=== PATIENT | male | born 1950 | race Caucasian/White ===

== ENCOUNTER 2023-10-24 06:28 | Observation (INO) | payer MEDICARE, OTHER ==
[2023-10-24 07:06] LABS: #Basophils 0.03 10x3/uL (0.0-0.2); %Basophils 0.3 % (0.0-1.0); %Eosinophils 0.8 % (0.0-10.0); %Lymphocytes 18.5 % (21.0-51.0); %Monocytes 6.7 % (0.0-10.0); %Neutrophils 73.4 % (42.0-75.0); Hematocrit 47.2 % (42.0-52.0); Hemoglobin 16.6 g/dL (14.0-18.0); Mean Corpuscular HGB CONC 35.2 g/dL (32.0-36.0); Mean Corpuscular Volume 88.2 fL (78.0-98.0); Mean Platelet Volume 9.5 fL (7.4-10.4); Platelet Count 218 10x3/uL (130-400); RBC Distribution Width 12.2 % (11.5-14.5); Red Blood Cell (RBC) Count 5.35 mill/uL (4.70-6.10)
[2023-10-24] MEDS ORDERED: Nitroglycerin 2% Ointment 1 INCH/1 GM Packet ONE (07:12)
[2023-10-24 07:24] LABS: ALT (SGPT) 19 U/L (8-55); AST (SGOT) 19 U/L (5-34); Alkaline Phosphatase 58 U/L (40-110); Anion Gap 15 mmol/L (10-20); BUN (Urea Nitrogen) 17 mg/dL (8.4-25.7); Bilirubin, Total 0.6 mg/dL (0.2-1.2); Calc. Creatinine Clearance 0 mL/min (70-130); Calcium 9.4 mg/dL (7.8-10.44); Carbon Dioxide 21 mmol/L (23-31); Chloride 107 mmol/L (98-107); Estimated GFR 78; Globulin 3.4 g/dL (2.4-3.5); Glucose 168 mg/dL (83-110); Lipase 30 U/L (8-78); Potassium 3.9 mmol/L (3.5-5.1); Protein, Total 7.4 g/dL (5.8-8.1); Sodium 139 mmol/L (136-145)
[2023-10-24 07:28] LABS: Troponin I Less than 0.010 ng/mL (< 0.028)
[2023-10-24] MEDS ORDERED: Ondansetron PF 4 MG/2 ML Vial ONE (08:39)
[2023-10-24] MEDS ORDERED: Acetaminophen 325 MG TAB PO PRN (08:49)
[2023-10-24] MEDS ORDERED: Acetaminophen 650 MG Suppository PR PRN (08:49)
[2023-10-24] MEDS ORDERED: Ondansetron ODT 4 MG TAB PO PRN (08:49)
[2023-10-24 11:23] LABS: Troponin I Less than 0.010 ng/mL (< 0.028)
[2023-10-24] MEDS ORDERED: Iopamidol-370 76% 500 ML MDV (1 ML CHARGE) ONE (11:33)
[2023-10-24 12:47] VITALS: BMI 27.7
[2023-10-24] MEDS: Enoxaparin 40 MG (0.4 mL) SYRINGE SC SCH (12:49)
[2023-10-24 18:48] LABS: Troponin I Less than 0.010 ng/mL (< 0.028)
[2023-10-24] MEDS: Ondansetron PF 4 MG/2 ML Vial IVP PRN (19:25)
[2023-10-24] MEDS: Atorvastatin Calcium 40 MG TAB PO SCH (21:13)
[2023-10-25 04:41] LABS: #Basophils Less than 0.03 10x3/uL (0.0-0.2); %Basophils 0.1 % (0.0-1.0); %Eosinophils 0.3 % (0.0-10.0); %Lymphocytes 9.8 % (21.0-51.0); %Neutrophils 80.3 % (42.0-75.0); Hematocrit 46.2 % (42.0-52.0); Hemoglobin 16.1 g/dL (14.0-18.0); Mean Corpuscular HGB CONC 34.8 g/dL (32.0-36.0); Mean Corpuscular Hemoglobin 30.7 pg (27.0-31.0); Mean Corpuscular Volume 88.2 fL (78.0-98.0); Mean Platelet Volume 9.7 fL (7.4-10.4); Platelet Count 214 10x3/uL (130-400); RBC Distribution Width 12.4 % (11.5-14.5); Red Blood Cell (RBC) Count 5.24 mill/uL (4.70-6.10)
[2023-10-25 04:44] LABS: Hemoglobin A1c 5.5 % (4.0-6.0)
[2023-10-25 04:57] LABS: Anion Gap 13 mmol/L (10-20); BUN (Urea Nitrogen) 15 mg/dL (8.4-25.7); Calc. Creatinine Clearance 89 mL/min (70-130); Calcium 9.2 mg/dL (7.8-10.44); Carbon Dioxide 23 mmol/L (23-31); Cardiac Risk 6.1 (Less than 4.5); Chloride 107 mmol/L (98-107); Cholesterol 184 mg/dl (< 200 Desired); Estimated GFR 86; Glucose 128 mg/dL (83-110); HDL Cholesterol 30 mg/dL (>60 Neg Risk); LDL Cholesterol, Calculated 129 mg/dL; Potassium 3.7 mmol/L (3.5-5.1); Sodium 139 mmol/L (136-145); Triglycerides 125 mg/dL (Less than 150)
[2023-10-25] MEDS: Aspirin 81 mg Enteric Coated Tablet PO SCH (08:37)
[2023-10-25] MEDS ORDERED: Regadenoson 0.4 MG/5 ML SYRINGE ONE (10:14)
[2023-10-25] MEDS: Sodium Chloride 0.9% 1,000 ML IV SCH (11:53)
[2023-10-25] MEDS: Sodium Chloride 0.9% 500 ML IV SCH (11:56)
[2023-10-25] MEDS: Metoclopramide HCl 10 MG (2 mL) VIAL IVP PRN (11:56)
[2023-10-25] MEDS: Ondansetron PF 4 MG/2 ML Vial IVP SCH (12:35)
[2023-10-25 13:31] VITALS: BP 132/74
[2023-10-25] MEDS ORDERED: Lidocaine 2% Viscous Solution 20 ML, Aluminum & Magnesium Hydroxide 30 ML, Donnatal Eli... SSW SCH (14:30)
[2023-10-25] MEDS: Pantoprazole 40 MG VIAL IVP SCH (14:53)
[2023-10-25 17:13] VITALS: TEMP 98.3
[2023-10-26] MEDS ORDERED: Pantoprazole 40 MG VIAL IVP SCH (09:00)
[2023-10-26] MEDS ORDERED: Pantoprazole DR 40 MG TAB PO SCH (09:00)
== END 2023-10-25 17:15 | disposition home or self-care (01) ==
LOC: SUATTDRO 06:28 → ERS 06:28 → ERHOLD 08:51 → 2NO 11:42
PROVIDERS: ADMIT Family Medicine; ATTEND Family Medicine
DX: R07.9 Chest pain, unspecified (principal); R00.1 Bradycardia, unspecified; R10.13 Epigastric pain; Z90.49 Acquired absence of other specified parts of digestive tract; Z98.890 Other specified postprocedural states
CPT/HCPCS: 71045; 71275; 74174; 78452; 80048; 80053; 80061; 83036; 83690; 84443; 84484 ×2; 85025 ×2; 93005; 93017; 96372 ×2; 96374; 96375; 96376; 99285; A9502; C9113; G0378 ×3; J1650 ×2; J2405; J2765; J2785 ×2; J7030; J7050; Q9967; 36415